=== PATIENT | female | born 1975 | race Caucasian/White ===

== ENCOUNTER 2016-08-14 19:43 | Inpatient (IN) | payer OTHER ==
[~2016-08-14] VITALS: Ht 165.1 cm; Wt 40.9 kg
[~2016-08-14 19:43] MED LIST: ALBUTEROL0.63 MG/3 INH; ALL DAY ALLERGY10 M3 PO; CATAPRES-TTS 11 EACH TD; CEFUROXIME500 MG PO; CLARITIN10 M2 PO; COMBIVENT0.074 GM/I INH; DULERA 200 MCG8.8 GM INH; DULOXETINE HCL60 MG PO; ENSURE ORIGINA237 ML PO; IBUPROFEN800 MG PO; INCRUSE ELLI62.5 MCG PO; KLONOPIN0.5 MG PO; LOPRESSOR50 MG PO; MEDROL DOSEPAK 24 MG PO; MONTELUKAST SOD10 MG PO; MULTIPLE VITAM1 EAC2 PO; NEURONTIN 400400 MG PO; PREDNISONE 10 M10 MG PO; QUETIAPINE FUM200 MG PO; SEROQUEL200 MG PO; SPIRIVA18 MCG INH; SUMATRIPTAN SUC50 MG PO; SYMBICORT 160-1 INHA INH; VENTOLIN HFA 66.7 GM INH; VENTOLIN/PROVE0.5 ML INH; VISTARIL25 MG PO; VITAMIN B-1000 MCG/M IM; ZANTAC 150 MG150 MG PO
[2016-08-14 21:46] LABS: HEMOGLOBIN 12.6 gm/dl (12.3-15.3); RED BLOOD COUNT 4.24 M/UL (4.00-5.10); WHITE BLOOD COUNT 16.6 K/UL (4.5-11.0)
[2016-08-14 22:12] LABS: BUN/CREATININE RATIO 67 (0-10)
[2016-08-15] MEDS ORDERED: LOPRESSOR 50 MG50 MG PO (00:56)
[2016-08-15] MEDS ORDERED: SEROQUEL200 MG PO (00:57)
[2016-08-15] MEDS ORDERED: CYMBALTA60 MG PO (00:57)
[2016-08-15] MEDS ORDERED: NEURONTIN 400400 MG PO (00:58)
[2016-08-15] MEDS ORDERED: SINGULAIR10 MG PO (00:59)
[2016-08-15] MEDS ORDERED: IBUPROFEN800 MG PO (00:59)
[2016-08-15] MEDS ORDERED: ZYRTEC10 MG PO (01:00)
[2016-08-15] MEDS ORDERED: VISTARIL25 MG PO (01:01)
[2016-08-15] MEDS ORDERED: CLARITIN10 MG PO (01:01)
[2016-08-15] MEDS ORDERED: VENTOLIN/PROVE0.5 ML INH (01:02)
[2016-08-15 03:58] LABS: HEMOGLOBIN 11.7 gm/dl (12.3-15.3); RED BLOOD COUNT 3.95 M/UL (4.00-5.10); WHITE BLOOD COUNT 14.9 K/UL (4.5-11.0)
[2016-08-15 04:16] LABS: BUN/CREATININE RATIO 57 (0-10)
[2016-08-16 03:36] LABS: HEMOGLOBIN 9.9 gm/dl (12.3-15.3)
[2016-08-16 03:38] LABS: RED BLOOD COUNT 3.38 M/UL (4.00-5.10); WHITE BLOOD COUNT 7.1 K/UL (4.5-11.0)
[2016-08-17 03:59] LABS: BUN/CREATININE RATIO 25 (0-10)
== END 2016-08-17 19:36 | disposition home or self-care (01) | DRG 189 ==
LOC: ER1 19:43 → CCU 21:30 → ZEROF 21:30 → CCU 08-15 00:13
PROVIDERS: Internal Medicine; Student in an Organized Health Care Education/Training Program; ADMIT Internal Medicine
DX: J96.01 Acute respiratory failure with hypoxia (principal); G93.40 Encephalopathy, unspecified; E46 Unspecified protein-calorie malnutrition; Z68.1 Body mass index [BMI] 19.9 or less, adult; J96.02 Acute respiratory failure with hypercapnia; J44.9 Chronic obstructive pulmonary disease, unspecified; T43.8X1A Poisoning by other psychotropic drugs, accidental (unintentional), initial encounter; T43.501A Poisoning by unspecified antipsychotics and neuroleptics, accidental (unintentional), initial encounter; Z99.81 Dependence on supplemental oxygen; G89.4 Chronic pain syndrome; F41.9 Anxiety disorder, unspecified; F32.9 Major depressive disorder, single episode, unspecified; G43.909 Migraine, unspecified, not intractable, without status migrainosus; G47.00 Insomnia, unspecified; Z87.01 Personal history of pneumonia (recurrent); K21.9 Gastro-esophageal reflux disease without esophagitis; Z87.442 Personal history of urinary calculi; F19.90 Other psychoactive substance use, unspecified, uncomplicated; Z87.891 Personal history of nicotine dependence; L89.159 Pressure ulcer of sacral region, unspecified stage; Z98.890 Other specified postprocedural states; R41.0 Disorientation, unspecified; Z91.19 Patient's noncompliance with other medical treatment and regimen; R11.0 Nausea; Z83.3 Family history of diabetes mellitus; Z82.49 Family history of ischemic heart disease and other diseases of the circulatory system; Z88.1 Allergy status to other antibiotic agents; Z79.899 Other long term (current) drug therapy; Z79.1 Long term (current) use of non-steroidal anti-inflammatories (NSAID); D72.829 Elevated white blood cell count, unspecified; R31.29 Other microscopic hematuria; D53.9 Nutritional anemia, unspecified; F39 Unspecified mood [affective] disorder
CPT/HCPCS: 36415; 36600; 51702; 70450; 71010; 80048; 80053; 80307; 81001; 82009; 82140; 82550; 82553; 82803; 83605; 83690; 83874; 84132; 84484; 85025; 85027; 85610; 85730; 87040; 87086; 93005; 94640; 94660; 94664; 96374; 96375; 99291; C9113; G0480; J0456; J1335; J1650; J1956; J2543; J2920; J3370; J7030; J7050; J9308